=== PATIENT | female | born 1995 | race Caucasian/White ===

== ENCOUNTER 2021-11-16 11:46 | Outpatient (CLI) | payer OTHER, SELFPAY ==
--- NOTE | ~2021-11-16 | XR_ITS ---
EXAMINATION: XR fl inj hip LT for MR/CT DATE: 11/16/2021 13:55 INDICATION: Left hip pain. TECHNIQUE: A time-out was performed to verify the patient's name, date of , and procedure to b e performed. The procedure including the risks, benefits, and alternatives was discussed with the pat ient. Risks discussed included bleeding and infection. The patient understood the risks and agreed to proceed. The skin overlying the left hip joint was prepped and draped in usual sterile fashion. Ane sthetic was administered with 1% lidocaine subcutaneously. A 22 G needle was advanced under fluorosc opic guidance into the joint. Subsequently, injectate consisting of 9 mL of 1:200 Multihance, 1:4 1% lidocaine, and 1:4 Omnipaque 240 was instilled. The needle was removed and the entry site was clean ed and dressed. There were no immediate complications. Fluoroscopy exposure time was 0.1 minutes. Th e total number of images was 2. FINDINGS: Real-time fluoroscopy demonstrates the needle and contrast in the left hip joint. IMPRESSION: 1. Successful left hip joint injection of contrast for subsequent MR arthrography. Reviewed, dictated and finalized at location A. ALS WRITER IMPRESSION: 1. Successful left hip joint injection of contrast for subsequent MR arthrograp .
--- NOTE | ~2021-11-16 | MR_ITS ---
EXAMINATION: MR hip LT w con DATE: 11/16/2021 14:47 INDICATION: Left hip pain with suspected labral tear TECHNIQUE: Magnetic resonance imaging (MRI) of the left hip was performed without intravenous contra st. Sequences included full-field axial PD-weighted FS FSE and T1-weighted FSE, coronal of the pelvis with PD-weighted FS FSE, small field of view of the left hip with axial PD-weighted FS FSE, sagitta l PD-weighted FS FSE and coronal PD weighted FS FSE. Additional radial T1-weighted FGR oriented ortho gonal to the acetabular rim were obtained for evaluation of the labrum. COMPARISON: None FINDINGS: Bones/labrum/cartilage: Alignment is normal. Transitional lumbosacral segment. No fracture, avascular necrosis or pathologic marrow replacing process. Labrum is normal. Articular cartilage is normal. Fluid: Physiologic amount of fluid in the contralateral right hip joint. No bursitis or other abnormal fluid collections. Soft tissues: Normal and symmetric muscle bulk and signal in the pelvis and visualized proximal thighs. The iliopso as, gluteal and proximal hamstring tendons are normal. Large amount of stool scattered throughout the visualized colon. Limited evaluation of visceral organs of the pelvis is otherwise unremarkable. No pathologically enlarged pelvic/inguinal lymphadenopathy. IMPRESSION: 1. Unremarkable MRI of the left hip with normal cartilage and labrum. Reviewed, dictated and finalized at [facility]. D OF EDUCATION SECRETARY
== END 2021-11-16 11:47 | disposition home or self-care (01) ==
LOC: ANHIMG 11:53
PROVIDERS: PCP Physician Assistant; Visit Provider Orthopaedic Surgery
DX: M25.552 Pain in left hip (principal)
CPT/HCPCS: 20610; 73722; 77002; A9577; Q9966